=== PATIENT | male | born 1970 | race American Indian/Alaskan Native ===

== ENCOUNTER 2021-07-30 04:09 | Emergency (ER) | payer MEDICAID ==
--- NOTE | 2021-07-30 04:56 | EDM.PDOC ---
ED HPI GENERAL MEDICAL PROBLEM - General Chief Complaint: General Stated Complaint: HEART TROUBLE Time Seen by Provider: 07/30/21 04:50 Source of Information: Reports: Patient History Limitations: Reports: No Limitations - History of Present Illness INITIAL COMMENTS - FREE TEXT/NARRATIVE: Ez is a 50-year-old male presenting to the ED for evaluation of heart palpitations. He states that earlier today felt like his heart was beating too fast. He says it has been more frequent since he received bad news this past week. First his significant other his mother found out she has cancer and then this was followed by his own mother revealing that she also has cancer. Patient states that he does not know how to cope with this. Patient is currently on Suboxone and treatment for hepatitis C. His primary provider is Teresa Norris. He denies any suicide or homicidal ideation. He appears quite somnolent in the room. The director of cardiac rehabilitation shows normal sinus rhythm with an occasional PVC. He denies any chest pain or shortness of breath. The patient does have an event monitor but has yet to use it during any of these palpitations. Does have a past medical history significant for polysubstance use including methamphetamine. - Related Data Allergies Allergy/AdvReac Type Severity Reaction Status Date / Time No Known Allergies Allergy Verified 07/30/21 04:33 Home Meds: Home Meds Buprenorphine HCl/Naloxone HCl [Suboxone 4 mg-1 mg Sl Film] 1 each SL BID 07/30/21 [History] Past Medical History - Past Health History Medical/Surgical History: Denies Medical/Surgical History Endocrine/Metabolic History: Reports: Diabetes, Type II Social & Family History - Tobacco Use Tobacco Use Status *Q: Current Every Day Tobacco User Years of Tobacco use: 30 Packs/Tins Daily: 1 - Caffeine Use Caffeine Use: Reports: Coffee, Soda, Tea - Recreational Drug Use Recreational Drug Use: Yes Drug Use in Last 12 Months: Yes Recreational Drug Type: Reports: Marijuana/Hashish Recreational Drug Use Frequency: Daily ED ROS GENERAL - Review of Systems Review Of Systems: See Below Constitutional: Reports: No Symptoms HEENT: Reports: No Symptoms Respiratory: Reports: No Symptoms Cardiovascular: Reports: Palpitations Endocrine: Reports: No Symptoms GI/Abdominal: Reports: No Symptoms : Reports: No Symptoms Musculoskeletal: Reports: No Symptoms Skin: Reports: No Symptoms Neurological: Reports: No Symptoms Psychiatric: Reports: No Symptoms Hematologic/Lymphatic: Reports: No Symptoms Immunologic: Reports: No Symptoms ED EXAM, GENERAL - Physical Exam Exam: See Below Exam Limited By: No Limitations General Appearance: Alert, No Apparent Distress Eye Exam: Bilateral Eye: EOMI, PERRL Throat/Mouth: Normal Oropharynx, Normal Voice, No Airway Compromise Head: Atraumatic, Normocephalic Neck: Normal Inspection, Supple Respiratory/Chest: No Respiratory Distress, Lungs Clear, Normal Breath Sounds Cardiovascular: Normal Peripheral Pulses, Regular Rate, Rhythm, No Murmur, Extra Beats (Occasional) Peripheral Pulses: 2+: Radial (L), Radial (R) GI/Abdominal: Normal Bowel Sounds, Soft, Non-Tender Extremities: Normal Inspection, Normal Range of Motion Neurological: Alert, Oriented, Normal Cognition, No Motor/Sensory Deficits Psychiatric: Normal Affect Skin Exam: Warm, Dry #1 Interpretation EKG Date: 07/30/21 Time: 05:00 Rhythm: NSR Rate (Beats/Min): 77 [place]: Normal P-Wave: Enlarged (Left atrial enlargement) QRS: Normal ST-T: Normal QT: Prolonged Comparison: NA - No Prior EKG Course - Vital Signs Last Recorded V/S: Last Vital Signs Temp 36.5 C 07/30/21 04:28 Pulse 72 07/30/21 04:28 Resp 19 07/30/21 04:28 BP 140/78 07/30/21 04:28 Pulse Ox 95 07/30/21 04:28 - Orders/Labs/Meds Orders: Active Orders 24 hr Category Date Time Status BASIC METABOLIC PANEL,BMP [CHEM] Stat Lab 07/30/21 05:00 Received TROPONIN I [CHEM] Stat Lab 07/30/21 05:00 Received EKG 12 Lead [EK] Routine Ther 07/30/21 04:50 Ordered Labs: Laboratory Tests 07/30/21 07/30/21 Range/Units 05:00 05:00 WBC 7.3 (4.5-11.0) K/uL RBC 4.44 (4.30-5.90) M/uL Hgb 13.4 (12.0-15.0) g/dL Hct 39.2 L (40.0-54.0) % MCV 88 (80-98) fL MCH 30 (27-31) pg MCHC 34 (32-36) % Plt Count 254 (150-400) K/uL Neut % (Auto) 48.0 (36-66) % Lymph % (Auto) 34.2 (24-44) % [place] % (Auto) 13.0 H (2-6) % Eos % (Auto) 4.3 H (2-4) % Baso % (Auto) 0.5 (0-1) % Urine Opiates Screen Negative (NEGATIVE) Ur Oxycodone Screen Negative (NEGATIVE) Urine Methadone Screen Negative (NEGATIVE) Ur Propoxyphene Screen Negative (NEGATIVE) Ur Barbiturates Screen Negative (NEGATIVE) Ur Tricyclics Screen Negative (NEGATIVE) Ur Phencyclidine Scrn Negative (NEGATIVE) Ur Amphetamine Screen Presumptive positive H (NEGATIVE) U Methamphetamines Scrn Presumptive positive H (NEGATIVE) Urine MDMA Screen Presumptive positive H (NEGATIVE) U Benzodiazepines Scrn Negative (NEGATIVE) U Cocaine Metab Screen Negative (NEGATIVE) U Marijuana (THC) Screen Presumptive positive H (NEGATIVE) - Re-Assessments/Exams Free Text/Narrative Re-Assessment/Exam: 07/30/21 05:20 the patient is under a controlled substance agreement and therefore I will not be prescribing any benzodiazepines for his anxiety. He needs to follow-up with his primary provider who has this controlled substance agreement with to discuss management of his ongoing anxiety. There is no current activity that is worrisome with a cardiac symptoms today. Labs were obtained but the patient does not want a wait for the results therefore is leaving before the results are returned. 07/30/21 05:28 urine drug screen is positive for methamphetamine, ecstasy, and THC. CBC is unremarkable. Departure - Departure Time of Disposition: 05:18 Disposition: Home, Self-Care 01 Clinical Impression: Anxiety, Palpitations, Methamphetamine abuse, MDMA abuse, Marijuana use - Discharge Information Instructions: Palpitations, [id number], Managing Anxiety, Adult Referrals: Teresa Norris DO [Primary Care Provider] - Forms: ED Department Discharge Care Plan Goals: Your EKG today is normal. Please use your event monitor when you have these episodes so that you can record them for your provider. As you are on a controlled substance agreement, and you will need to discuss management of your anxiety with your primary provider. Please call and make that appointment to see them as soon as possible. Sepsis Event Note (ED) - Evaluation Sepsis Screening Result: No Definite Risk - Focused Exam Vital Signs: Vital Signs Temp Pulse Resp BP Pulse Ox 07/30/21 04:28 36.5 C 72 19 140/78 95 - Problem List & Annotations (1) Anxiety SNOMED Code(s): 70437400 Code(s): F41.9 - ANXIETY DISORDER, UNSPECIFIED Status: Acute Priority: Medium (2) Palpitations SNOMED Code(s): 09218946 Code(s): R00.2 - PALPITATIONS Status: Acute Priority: Medium (3) MDMA abuse SNOMED Code(s): 386034243 Code(s): F16.10 - HALLUCINOGEN ABUSE, UNCOMPLICATED Status: Acute Priority: Medium (4) Marijuana use SNOMED Code(s): 248923595 Code(s): F12.90 - CANNABIS USE, UNSPECIFIED, UNCOMPLICATED Status: Acute Priority: Medium (5) Methamphetamine abuse SNOMED Code(s): 728829021 Code(s): F15.10 - OTHER STIMULANT ABUSE, UNCOMPLICATED Status: Acute Priority: Medium - Problem List Review Problem List Initiated/Reviewed/Updated: Yes - My Orders Last 24 Hours: My Active Orders 07/30/21 04:50 EKG 12 Lead [EK] Routine 07/30/21 05:00 BASIC METABOLIC PANEL,BMP [CHEM] Stat TROPONIN I [CHEM] Stat - Assessment/Plan Last 24 Hours: My Active Orders 07/30/21 04:50 EKG 12 Lead [EK] Routine 07/30/21 05:00 BASIC METABOLIC PANEL,BMP [CHEM] Stat TROPONIN I [CHEM] Stat
== END 2021-07-30 05:20 | disposition home or self-care (01) ==
LOC: JP.ED 04:09
DX: F41.9 Anxiety disorder, unspecified (principal); F15.10 Other stimulant abuse, uncomplicated; F12.90 Cannabis use, unspecified, uncomplicated; E11.9 Type 2 diabetes mellitus without complications; Z72.0 Tobacco use
CPT/HCPCS: 36415; 80048; 80305-QW; 84484; 85025; 93005; 99285-25

== ENCOUNTER 2022-01-17 23:37 | Emergency (ER) | payer MEDICAID | END 2022-01-18 01:38 | disposition home or self-care (01) | LOC: JP.ED 23:37 | DX: I49.8 Other specified cardiac arrhythmias (principal); R00.2 Palpitations; I10 Essential (primary) hypertension; F17.200 Nicotine dependence, unspecified, uncomplicated; E11.65 Type 2 diabetes mellitus with hyperglycemia | CPT/HCPCS: 36415; 80048; 83735; 84443; 84484; 85025; 93005; 93010; 99283; 99285-25 ==